=== PATIENT | female | born 1945 | race Caucasian/White ===

== ENCOUNTER 2018-07-17 20:51 | Emergency (ER) | payer OTHER, MEDICARE ==
[2018-07-17 20:58] VITALS: BP 111/62; PULSE 71; TEMP 98.3; BMI 23.3
[2018-07-17 21:31] LABS: BASO % 0.8 % (0-2.0); EOS % 1.7 % (0-4.5); HEMATOCRIT 41.1 % (32.4-45.2); HEMOGLOBIN 13.9 GM/dl (10.7-15.3); LYMPH % 33.9 % (8-40); MCH 31.7 pg (25.7-33.7); MCHC 33.9 g/dl (32.0-36.0); MEAN CELL VOLUME 93.6 fl (80-96); MEAN PLT VOLUME 7.4 fl (7.5-11.1); MONO % 10.7 % (3.8-10.2); NEUT % 52.9 % (42.8-82.8); PLATELET COUNT 195 K/MM3 (134-434); RBC 4.39 M/mm3 (3.60-5.2); RDW 11.9 % (11.6-15.6); WHITE BLOOD COUNT 7.7 K/mm3 (4.0-10.8)
[2018-07-17 21:37] LABS: INR 1.01 (0.82-1.09); PROTHROMBIN TIME (PATIENT) 11.3 SEC (10.2-13.0)
--- NOTE | 2018-07-17 22:44 | PDOC ---
Documentation entered by Maribel Conklin SCRIBE, acting as scribe for Kathi Colvin MD. Kathi Colvin MD: This documentation has been prepared by the Rubin cruz Nirvannie, SCRIBE, under my direction and personally reviewed by me in its entirety. I confirm that the documentation accurately reflects all work, treatment, procedures, and medical decision making performed by me. History of Present Illness - General Chief Complaint: Lightheaded Stated Complaint: DIZZY Time Seen by Provider: 07/17/18 21:00 History Source: Patient, Family (Daughter.) Exam Limitations: No Limitations - History of Present Illness Initial Comments: 07/17/18 22:10 The patient is a 73 year old female, with a significant past medical history of HLD, MGUS, and erythromelalgia, who presents to the emergency department with, improving episode of dizziness and tingling to the blt arms and feet. As per patient, she is currently on day 3 of an under the tongue CBD/THC spray and notes today she experienced an episode of fuzziness then hours later at approximately 7:45pm she experienced an episode of dizziness followed by blt arms and feet tingling. Secondary to the onset, she notes 2 months of abdominal pain for which she has received multiple ultrasounds for. She denies recent fevers or chills. She denies recent nausea, vomit, diarrhea or constipation. She denies recent dysuria, frequency, urgency or hematuria. She denies recent chest pain or shortness of breath. Allergies: Levofloxacin, sulfa Primary Care Physician: Dr. King Past History - Past Medical History Allergies/Adverse Reactions: Allergies Allergy/AdvReac Type Severity Reaction Status Date / Time levofloxacin [From Levaquin] Allergy Verified 07/17/18 20:52 Sulfa (Sulfonamide Allergy Verified 07/17/18 20:52 Antibiotics) Home Medications: Ambulatory Orders Lorazepam [Ativan] 2 mg PO HS 06/25/13 Atorvastatin Ca [Lipitor] 10 mg PO DAILY 07/17/18 Balance [place] 1cbd:1thc 3 sprays SL BID PRN 07/17/18 Escitalopram Oxalate [Lexapro -] 10 mg PO DAILY 07/17/18 Nitrofurantoin Monohyd/M-Cryst [Macrobid -] 100 mg PO BID #14 capsule 07/17/18 COPD: No GI Disorders: Yes (MGUS) Kidney Stones: Yes Psychiatric Problems: Yes Other medical history: ERYTHROMYALGIA - Surgical History Appendectomy: Yes - Immunization History Immunization Up to Date: Yes - Suicide/Smoking/Psychosocial Hx Smoking History: Never smoked Have you smoked in the past 12 months: No Information on smoking cessation initiated: No Hx Alcohol Use: No Substance Use Type: None Review of Systems - Review of Systems Able to Perform ROS?: Yes Comments:: 07/17/18 22:10 GENERAL/CONSTITUTIONAL: No fever or chills. No weakness. HEAD, EYES, EARS, NOSE AND THROAT: No change in vision. No ear pain or discharge. No sore throat. CARDIOVASCULAR: No chest pain or shortness of breath. RESPIRATORY: No cough, wheezing, or hemoptysis. GASTROINTESTINAL:+Abdominal pain. No nausea, vomiting, diarrhea or constipation. GENITOURINARY: No dysuria, frequency, or change in urination. MUSCULOSKELETAL: No joint or muscle swelling or pain. No neck or back pain. SKIN: No rash NEUROLOGIC: +Dizziness. +Tingling to the blt arms and blt legs. No headache, loss of consciousness, or change in strength/sensation. ENDOCRINE: No increased thirst. No abnormal weight change. HEMATOLOGIC/LYMPHATIC: No anemia, easy bleeding, or history of blood clots. ALLERGIC/IMMUNOLOGIC: No hives or skin allergy. All Other Systems: Reviewed and Negative *Physical Exam - Vital Signs Last Vital Signs Temp Pulse Resp BP Pulse Ox 98.3 F 71 18 111/62 98 07/17/18 20:51 07/17/18 20:51 07/17/18 20:51 07/17/18 20:51 07/17/18 20:51 - Physical Exam Comments: 07/17/18 22:12 GENERAL: Awake, alert, and fully oriented, in no acute distress HEAD: No signs of trauma EYES: PERRLA, EOMI, sclera anicteric, conjunctiva clear ENT: Auricles normal inspection, hearing grossly normal, nares patent, oropharynx clear without exudates. Moist mucosa NECK: Normal ROM, supple, no lymphadenopathy, JVD, or masses LUNGS: Breath sounds equal, clear to auscultation bilaterally. No wheezes, and no crackles HEART: Regular rate and rhythm, normal S1 and S2, no murmurs, rubs or gallops ABDOMEN: Soft, nontender, normoactive bowel sounds. No guarding, no rebound. No masses EXTREMITIES: Normal range of motion, no edema. No clubbing or cyanosis. No cords, erythema, or tenderness NEUROLOGICAL: Alert, awake, appropriate. Cranial nerves 2-12 intact. No deficits to light touch and temperature in face, upper extremities and lower extremities. No motor deficits in the in face, upper extremities and lower extremities. No pronator drift. Normoreflexic in the upper and lower extremities. Normal speech. Toes are down-going bilaterally. SKIN: Warm, Dry, normal turgor, no rashes or lesions noted. ED Treatment Course - LABORATORY CBC & Chemistry Diagram: 07/17/18 21:20 07/17/18 21:20 - ADDITIONAL ORDERS Additional order review: Laboratory Results 07/17/18 07/17/18 21:20 21:20 PT with INR 11.3 INR 1.01 Troponin I < 0.03 07/17/18 21:20 RBC 4.39 MCV 93.6 MCHC 33.9 RDW 11.9 MPV 7.4 L Neutrophils % 52.9 Lymphocytes % 33.9 Monocytes % 10.7 H Eosinophils % 1.7 Basophils % 0.8 Medical Decision Making - Medical Decision Making 07/18/18 03:26 Pt understands that she has 1+ leuk in her urine, but she is not convinced that this is a UTI and she tells me that she will not fill the rx. I explained to her that the abx will be at her pharmacy should she require it or should she change her mind. Pt is stable for d/c home. Her AMS and her dizziness and slurred speech were likely due to the THC and CBD that she has been spraying under her tongue in an attempt to treat her paresthesias in her hands bilat. *DC/Admit/Observation/Transfer Diagnosis at time of Disposition: UTI (urinary tract infection), Dizziness, Medical cannabis use - Discharge Dispostion Disposition: HOME Condition at time of disposition: Stable - Prescriptions Prescriptions: Nitrofurantoin Monohyd/M-Cryst [Macrobid -] 100 mg PO BID #14 capsule - Referrals Referrals: Javed King [Primary Care Provider] - - Patient Instructions Printed Discharge Instructions: Urinary Tract Infection, DI for Dizziness- Nonvertigo - Post Discharge Activity
[2018-07-17] MEDS ORDERED: SODIUM CHLORIDE 0.9% 500 ML INFUS.BAG IV ONE (22:54)
[2018-07-17 22:56] LABS: URINE COLOR YELLOW
[2018-07-17 22:57] LABS: URINE APPEARANCE CLEAR; URINE BILIRUBIN NEGATIVE (NEGATIVE); URINE GLUCOSE (UA) NEGATIVE (NEGATIVE); URINE KETONE NEGATIVE (NEGATIVE); URINE PROTEIN NEGATIVE (NEGATIVE)
[2018-07-17 22:58] LABS: URINE LEUK ESTERASE 1+ (NEGATIVE); URINE NITRITE NEGATIVE (NEGATIVE); URINE UROBILINOGEN 0.2 (0.2-1.0)
[2018-07-17 23:36] LABS: BLOOD UREA NITROGEN 18.1 mg/dL (7-18); CREATININE 1.1 mg/dL (0.55-1.3); POTASSIUM 4.2 mmol/L (3.5-5.1)
[2018-07-17 23:37] LABS: ALBUMIN 3.5 g/dl (3.4-5.0); BILIRUBIN,TOTAL 0.3 mg/dL (0.2-1); CALCIUM 8.7 mg/dL (8.5-10.1)
--- NOTE | 2018-07-18 08:37 | EKG ---
Test Reason : Blood Pressure : / mmHG Vent. Rate : 071 BPM Atrial Rate : 071 BPM P-R Int : 158 ms QRS Dur : 076 ms QT Int : 434 ms P-R-T Axes : 064 050 038 degrees QTc Int : 471 ms NORMAL SINUS RHYTHM NORMAL ECG NO PREVIOUS ECGS AVAILABLE Confirmed by MYRANDA YOUNG, VERA ([id number]) on 07/18/2018 8:37:35 AM Referred By: MD LOZADA Confirmed By:VERA WHITMORE MD
[2018-07-18 09:01] LABS: EPI CELLS FEW /HPF
== END 2018-07-18 00:13 | disposition home or self-care (01) ==
LOC: FER 20:51
PROC: 3E0337Z Introduction of Electrolytic and Water Balance Substance into Peripheral Vein, Percutaneous Approach (ICD-10-PCS; principal; 2018-07-17)
DX: N39.0 Urinary tract infection, site not specified (principal); R42 Dizziness and giddiness; F12.929 Cannabis use, unspecified with intoxication, unspecified; D47.2 Monoclonal gammopathy
CPT/HCPCS: 36415; 80053; 81003; 82550; 84484; 85025; 85610; 93005; 99282-25

== ENCOUNTER 2018-11-23 16:09 | Emergency (ER) | payer OTHER, MEDICARE ==
--- NOTE | 2018-11-23 16:12 | PDOC ---
History of Present Illness - General Chief Complaint: Vomiting/Diarrhea Stated Complaint: VOMITING, DIARRHEA Time Seen by Provider: 11/23/18 16:12 - History of Present Illness Initial Comments: 11/23/18 18:08 Pt presents to the ED complaining of nausea, non bloody non bilous vomiting and profuse watery diarrhea that began acutely this AM. Complains of generalized malaise and body aches and of feeling feverish. Denies abdominal pain or chest pain. Reports that she is healthy with no medical problems. Past History - Past Medical History Allergies/Adverse Reactions: Allergies Allergy/AdvReac Type Severity Reaction Status Date / Time levofloxacin [From Levaquin] Allergy Verified 11/23/18 16:10 Sulfa (Sulfonamide Allergy Verified 11/23/18 16:10 Antibiotics) Home Medications: Ambulatory Orders Lorazepam [Ativan] 2 mg PO HS 06/25/13 Atorvastatin Ca [Lipitor] 10 mg PO DAILY 07/17/18 Escitalopram Oxalate [Lexapro -] 10 mg PO DAILY 07/17/18 Ondansetron HCl [Zofran] 4 mg PO TID PRN #30 tablet 11/23/18 COPD: No GI Disorders: Yes (MGUS) Kidney Stones: Yes Psychiatric Problems: Yes - Surgical History Appendectomy: Yes - Immunization History Immunization Up to Date: Yes - Psycho Social/Smoking Cessation Hx Smoking History: Never smoked Have you smoked in the past 12 months: No Hx Alcohol Use: No Substance Use Type: None Review of Systems - Review of Systems Able to Perform ROS?: Yes Is the patient limited Ukrainian proficient: No Constitutional: Yes: Chills, Malaise. No: Symptoms Reported, See HPI, Diaphoresis, Fever, Loss of Appetite, Night Sweats, Weakness, Weight Stable, Unintentional Wgt. Loss, Unexplained wgt Loss, Other HEENTM: No: Symptoms Reported, See HPI, Eye Pain, Blurred Vision, Tearing, Recent change in vision, Double Vision, Cataracts, Ear Pain, Ocular Prothesis, Ear Discharge, Nose Pain, Nose Congestion, Tinnitus, Nose Bleeding, Hearing Loss , Throat Pain, Throat Swelling, Mouth Pain, Dental Problems, Difficulty Swallowing, Mouth Swelling, Other Respiratory: No: Symptoms reported, See HPI, Cough, Orthopnea, Shortness of Breath, SOB with Exertion, SOB at Rest, Stridor, Wheezing, Productive cough, Hemoptysis, Other Cardiac (ROS): No: Symptoms Reported, See HPI, Chest Pain, Edema, Irregular Heart Rate, Lightheadedness, Palpitations, Syncope, Chest Tightness, Other ABD/GI: Yes: Diarrhea, Nausea, Vomiting. No: Symptoms Reported, See HPI, Abdominal Distended, Abd. Pain w/ defecation, Blood Streaked Bowels, Constipated , Difficulty Swallowing, Poor Appetite, Poor Fluid Intake, Rectal Bleeding, Indigestion, Abdominal cramping, Tarry Stools, Other : No: Symptoms Reported, See HPI, Burning, Dysuria, Discharge, Frequency, Flank Pain, Hematuria, Incontinence, Pain, Urgency, Testicular Mass, Testicular Swelling, Lesions, Testicular Pain, Other Musculoskeletal: No: Symptoms Reported, See HPI, Back Pain, Gout, Joint Pain, Joint Swelling, Muscle Pain, Muscle Weakness, Neck Pain, Joint Stiffness, Other Hematologic/Lymphatic: No: Symptoms Reported, See HPI, Anemia, Blood Clots, Easy Bleeding, Easy Bruising, Bleeding Diathesis, Lymph Node Abnormalities, Swollen Glands, Other All Other Systems: Reviewed and Negative *Physical Exam - Physical Exam Comments: 11/23/18 18:10 gen: alert, NAD HEENT: normocephalic, atraumatic Cv: rrr no m/r/g Pulm: CTA b/l GI: abdomen soft, non tender, non distended ext: no edema or tenderness skin: no rashes or jaundice neuro: aaox 3, CN grossly intact. ED Treatment Course - LABORATORY CBC & Chemistry Diagram: 11/23/18 16:45 11/23/18 16:45 Medical Decision Making - Medical Decision Making 11/23/18 18:12 Pt presents to the ED complaining of nausea and profuse diarrhea and vomiting. Labs demonstrate evidence of dehydration with elevated WBC count and HGB. Will treat with IV hydration and nausea control. Will consider discharge home if tolerating PO. 11/23/18 18:16 11/23/18 18:49 Tolerating PO juice and crackers. Will discharge home with instructions to return to the ED for new or worsening symptoms Discharge - Discharge Information Problems reviewed: Yes Clinical Impression/Diagnosis: Nausea and vomiting Qualifiers: Vomiting type: unspecified Vomiting Intractability: non-intractable Qualified Code(s): R11.2 - Nausea with vomiting, unspecified Condition: Good Disposition: HOME - Admission No - Additional Discharge Information Prescriptions: Ondansetron HCl [Zofran] 4 mg PO TID PRN #30 tablet PRN Reason: Nausea - Follow up/Referral Referrals: Javed King [Primary Care Provider] - - Patient Discharge Instructions Patient Printed Discharge Instructions: DI for Nausea -- Adult Additional Instructions: you came to the ED for nausea and vomiting. This is most likely caused by a virus. you should return to the ED for abdominal pain, fever, bloody vomit or stool, other new or worsening symptoms. Make sure you follow up with your doctor this week. - Post Discharge Activity
[2018-11-23 16:14] VITALS: BP 134/60; PULSE 68; TEMP 98.3; BMI 24.7
[2018-11-23] MEDS ORDERED: SODIUM CHLORIDE 0.9% 500 ML INFUS.BAG IV ONE ×2 (16:44→17:36)
[2018-11-23] MEDS ORDERED: ACETAMINOPHEN 1000 MG/100 ML VIAL (NON FORMULARY) IVPB ONE (16:45)
[2018-11-23] MEDS ORDERED: ONDANSETRON 4 MG/2 ML VIAL IVPUSH ONE (16:45)
[2018-11-23] MEDS ORDERED: ONDANSETRON 4 MG/2 ML VIAL ONE (16:46)
[2018-11-23] MEDS ORDERED: ACETAMINOPHEN INJECTION 100 ML IVPB ONE (16:46)
[2018-11-23 17:10] LABS: HEMATOCRIT 51.5 % (32.4-45.2); MCH 31.2 pg (25.7-33.7); MCHC 32.9 g/dl (32.0-36.0); MEAN CELL VOLUME 94.7 fl (80-96); MEAN PLT VOLUME 7.3 fl (7.5-11.1); PLATELET COUNT 215 K/MM3 (134-434); RBC 5.44 M/mm3 (3.60-5.2); RDW 12.3 % (11.6-15.6); WHITE BLOOD COUNT 14.8 K/mm3 (4.0-10.8)
[2018-11-23 17:19] LABS: ALBUMIN 4.2 g/dl (3.4-5.0); BILIRUBIN,TOTAL 0.6 mg/dl (0.2-1); CALCIUM 9.1 mg/dl (8.5-10); POTASSIUM 4.3 mmol/L (3.5-5.1); TOT PROT 6.8 g/dl (6.4-8.2)
[2018-11-23 21:27] LABS: PLATELET ESTIMATE ADEQUATE
== END 2018-11-23 19:05 | disposition home or self-care (01) ==
LOC: FER 16:09
PROC: 3E033NZ Introduction of Analgesics, Hypnotics, Sedatives into Peripheral Vein, Percutaneous Approach (ICD-10-PCS; principal; 2018-11-23)
PROC: 3E033GC Introduction of Other Therapeutic Substance into Peripheral Vein, Percutaneous Approach (ICD-10-PCS; 2018-11-23)
PROC: 3E0337Z Introduction of Electrolytic and Water Balance Substance into Peripheral Vein, Percutaneous Approach (ICD-10-PCS; 2018-11-23)
DX: R11.2 Nausea with vomiting, unspecified (principal); D47.2 Monoclonal gammopathy; N20.0 Calculus of kidney; F99 Mental disorder, not otherwise specified; Z88.2 Allergy status to sulfonamides; Z88.8 Allergy status to other drugs, medicaments and biological substances
CPT/HCPCS: 36415; 80053; 82550; 84484; 85025; 96374; 96375; 99284-25; J0131

== ENCOUNTER 2022-09-08 20:57 | Emergency (ER) | payer OTHER, MEDICARE ==
[2022-09-08] MEDS ORDERED: ACETAMINOPHEN 500 MG TABLET (FP) PO ONE (21:00)
[2022-09-08 21:04] VITALS: BP 131/59; PULSE 71; RESP 16; TEMP 97.7; BMI 25.7
[2022-09-08] MEDS ORDERED: ACETAMINOPHEN 500 MG TABLET (FP) ONE (21:06)
== END 2022-09-08 22:12 | disposition home or self-care (01) ==
LOC: FER 20:57
DX: S63.502A Unspecified sprain of left wrist, initial encounter (principal); W19.XXXA Unspecified fall, initial encounter
CPT/HCPCS: 73090-TC-LT-FY; 73110-TC-LT-FY; 99283-25